=== PATIENT | male | born 1935 | race Caucasian/White ===

== ENCOUNTER 2022-06-09 13:03 | Day surgery (SDC) | payer OTHER ==
[~2022-06-09] VITALS: Ht 170.2 cm; Wt 55.6 kg
[2022-06-09] MEDS ORDERED: OMEP20ER (13:27)
[2022-06-09] MEDS ORDERED: EUTHYROX50 MCG (13:27)
[2022-06-09] MEDS ORDERED: METO25ER (13:27)
[2022-06-09] MEDS ORDERED: ATOR10 (13:27)
[2022-06-09] MEDS ORDERED: STIOLTO RESPIMAT4 G1 (13:28)
--- NOTE | 2022-06-09 15:00 | NUR ---
06/09/22 1500 SUSHANT BELLAMY UPDRAFT TX PRE EDG PER DR SIMS AND 4% LIDOCAINE 5ML INHALATION PER DR SIMS PRE EDG
== END 2022-06-09 16:50 | disposition home or self-care (01) ==
LOC: ORSCSDS 13:03
PROVIDERS: Internal Medicine Gastroenterology
PROC: 0DJ08ZZ Inspection of Upper Intestinal Tract, Via Natural or Artificial Opening Endoscopic (ICD-10-PCS; principal; 2022-06-09 14:45)
DX: D50.8 Other iron deficiency anemias (principal); K92.1 Melena; I10 Essential (primary) hypertension; J44.9 Chronic obstructive pulmonary disease, unspecified; F17.210 Nicotine dependence, cigarettes, uncomplicated; E03.9 Hypothyroidism, unspecified; Z86.73 Personal history of transient ischemic attack (TIA), and cerebral infarction without residual deficits; Z85.118 Personal history of other malignant neoplasm of bronchus and lung; Z79.899 Other long term (current) drug therapy
CPT/HCPCS: J2001; J2704; J7120